=== PATIENT | female | born 1955 | race African-American/Black ===

== ENCOUNTER 2022-01-26 12:32 | Emergency (ER) | payer MEDICARE, MEDICAID ==
[~2022-01-26] VITALS: Ht 165.1 cm; Wt 54.0 kg
[2022-01-26 12:39] VITALS: BP 141/86
[2022-01-26 14:27] LABS: CLARITY URINE CLOUDY (CLEAR); COLOR URINE YELLOW (YELLOW); KETONES URINE NEGATIVE (NEGATIVE); LEUKOCYTE ESTERASE URINE 3+ (NEGATIVE); NITRITE URINE NEGATIVE (NEGATIVE); OCCULT BLOOD URINE TRACE (NEGATIVE); PROTEIN URINE NEGATIVE (NEGATIVE); SPECIFIC GRAVITY URINE 1.014 (1.005-1.030)
[2022-01-26] MEDS ORDERED: CEFP100S5 MT (15:19)
[2022-01-26] MEDS ORDERED: METR-167 MT (15:19)
[2022-01-26] MEDS ORDERED: OXYM30SP26 BOTHNSTRLS (16:52)
== END 2022-01-26 15:39 | disposition home or self-care (01) ==
LOC: ER 12:32
DX: S02.2XXA Fracture of nasal bones, initial encounter for closed fracture (principal); S09.8XXA Other specified injuries of head, initial encounter; Y04.2XXA Assault by strike against or bumped into by another person, initial encounter; A59.09 Other urogenital trichomoniasis; J32.9 Chronic sinusitis, unspecified; Y93.89 Activity, other specified; Y92.89 Other specified places as the place of occurrence of the external cause; F17.210 Nicotine dependence, cigarettes, uncomplicated; Z71.6 Tobacco abuse counseling
CPT/HCPCS: 70486; 81003; 99284; 99406

== ENCOUNTER 2022-01-28 11:41 | Emergency (ER) | payer MEDICARE, MEDICAID ==
[~2022-01-28] VITALS: Ht 165.1 cm; Wt 50.0 kg
[~2022-01-28 11:41] MED LIST: CEFP100S5 MT; METR-167 MT; OXYM30SP26 BOTHNSTRLS
[2022-01-28 11:49] VITALS: BP 125/75
[2022-01-28] MEDS ORDERED: IBUP-2030 MT (12:04)
[2022-01-28] MEDS ORDERED: KETOROLAC 30MG/ML VIAL IM ONE (12:15)
[2022-01-28] MEDS ORDERED: DOXYCYCLINE HYCLATE 100MG CAPSULE PO ONE ×2 (12:30→13:00)
[2022-01-28] MEDS ORDERED: CEFTRIAXONE SODIUM 500 MG/VIAL IM ONE ×2 (12:30→13:00)
[2022-01-28] MEDS ORDERED: METR-167 MT (12:32)
[2022-01-28] MEDS ORDERED: DOXY-326 MT (12:32)
== END 2022-01-28 14:47 | disposition home or self-care (01) ==
LOC: ER 13:28
DX: A59.00 Urogenital trichomoniasis, unspecified (principal); D25.9 Leiomyoma of uterus, unspecified; Z20.2 Contact with and (suspected) exposure to infections with a predominantly sexual mode of transmission; Z88.8 Allergy status to other drugs, medicaments and biological substances
CPT/HCPCS: 76830; 76856; 96372; 99284; J0696; J1885

== ENCOUNTER 2022-10-01 15:19 | Emergency (ER) | payer MEDICARE, MEDICAID ==
[~2022-10-01] VITALS: Ht 157.5 cm; Wt 70.0 kg
[~2022-10-01 15:19] MED LIST changes: -CEFP100S5 MT; +DOXY-326 MT; +IBUP-2030 MT
[2022-10-01 15:31] VITALS: BP 190/108
[2022-10-01 17:23] LABS: BASOPHILS % 0.3 % (0.0-2.0); EOSINOPHILS % 0.5 % (0.0-5.0); HEMATOCRIT. 43.1 % (36.0-48.0); HEMOGLOBIN. 14.6 g/dL (12.0-16.0); LYMPHOCYTES % 30.1 % (20.0-50.0); MEAN CORPUSCULAR HEMOGLOBIN 29.5 pg (28.0-32.0); MEAN CORPUSCULAR VOLUME 87.1 fL (81.0-99.0); MEAN PLATELET VOLUME 7.6 fl (7.4-10.4); MONOCYTES % 5.8 % (2.0-8.0); NEUTROPHILS % 63.3 % (40.0-76.0); PLATELET 261 x1000/uL (130-400); RED BLOOD CELL COUNT 4.95 mill/uL (4.2-5.4)
[2022-10-01 17:30] LABS: CHLORIDE 107 mEq/L (98-107)
[2022-10-02] MEDS ORDERED: MECL-159 MT (00:54)
[2022-10-02] MEDS ORDERED: AMOX-494 MT (00:54)
[2022-10-02] MEDS ORDERED: AMLO5TAB88 MT (00:54)
== END 2022-10-02 01:19 | disposition home or self-care (01) ==
LOC: ER 15:19
DX: R42 Dizziness and giddiness (principal); H92.01 Otalgia, right ear; I10 Essential (primary) hypertension
CPT/HCPCS: 36415; 71045; 80053; 84484; 85025; 93005; 99285

== ENCOUNTER 2023-01-17 09:46 | Emergency (ER) | payer MEDICARE, MEDICAID ==
[~2023-01-17] VITALS: Ht 162.6 cm; Wt 65.5 kg
[~2023-01-17 09:46] MED LIST changes: +AMLO5TAB88 MT; +AMOX-494 MT; -DOXY-326 MT; +DOXY-456 MT; +MECL-159 MT
[2023-01-17 10:03] VITALS: BP 150/97
[2023-01-17] MEDS ORDERED: AMLO5TAB88 MT (10:40)
[2023-01-17] MEDS ORDERED: MECL-159 MT (10:40)
[2023-01-17] MEDS ORDERED: MELO-104 MT (10:40)
== END 2023-01-17 11:33 | disposition home or self-care (01) ==
LOC: ER 09:46
DX: M25.561 Pain in right knee (principal); I10 Essential (primary) hypertension; Z76.0 Encounter for issue of repeat prescription; Z88.8 Allergy status to other drugs, medicaments and biological substances; Z88.9 Allergy status to unspecified drugs, medicaments and biological substances; Z98.890 Other specified postprocedural states
CPT/HCPCS: 99281

== ENCOUNTER 2023-07-10 07:43 | Emergency (ER) | payer MEDICARE, MEDICAID ==
[~2023-07-10] VITALS: Ht 167.6 cm; Wt 79.0 kg
[~2023-07-10 07:43] MED LIST changes: -MECL-159 MT; +MECL-299 MT; +MELO-104 MT
[2023-07-10 07:47] VITALS: BP 153/93; PULSE 71; RESP 20; TEMP 98.1; O2SAT 98
[2023-07-10] MEDS ORDERED: AMLO5TAB4 MT (08:50)
== END 2023-07-10 09:13 | disposition home or self-care (01) ==
LOC: ER 07:56
DX: Z76.0 Encounter for issue of repeat prescription (principal); I16.0 Hypertensive urgency; J44.1 Chronic obstructive pulmonary disease with (acute) exacerbation; Z88.8 Allergy status to other drugs, medicaments and biological substances; Z88.9 Allergy status to unspecified drugs, medicaments and biological substances
CPT/HCPCS: 99281

== ENCOUNTER 2024-08-09 12:29 | Emergency (ER) | payer MEDICARE, MEDICAID ==
[~2024-08-09] VITALS: Ht 165.1 cm; Wt 190.0 kg
[~2024-08-09 12:29] MED LIST changes: +AMLO5TAB4 MT; -DOXY-456 MT; +DOXY100C74 MT
[2024-08-09 12:39] VITALS: O2SAT 97
[2024-08-09] MEDS ORDERED: GUAI-450 MT (14:21)
[2024-08-09] MEDS ORDERED: ALBU18HF2 IH (14:22)
[2024-08-09] MEDS ORDERED: P50 MT (14:22)
[2024-08-09 14:55] VITALS: BP 151/88; PULSE 85; RESP 18; TEMP 36.78072; O2SAT 97
== END 2024-08-09 15:01 | disposition home or self-care (01) ==
LOC: ER 12:29
DX: J06.9 Acute upper respiratory infection, unspecified (principal); Z79.899 Other long term (current) drug therapy; Z98.890 Other specified postprocedural states
CPT/HCPCS: 71045; 99283

== ENCOUNTER 2025-03-09 08:50 | Emergency (ER) | payer MEDICARE, MEDICAID ==
[~2025-03-09] VITALS: Ht 165.1 cm; Wt 89.0 kg
[~2025-03-09 08:50] MED LIST changes: +ALBU18HF2 IH; -AMLO5TAB4 MT; +AMLO5TAB5 MT; +DOXY-461 MT; -DOXY100C74 MT; +GUAI-450 MT; +P50 MT
[2025-03-09 08:58] VITALS: O2SAT 95
[2025-03-09 09:37] LABS: HEMOGLOBIN 13.6 g/dL (12.0-16.0); MEAN CORPUSCULAR HEMOGLOBIN 28.5 pg (28.0-32.0); MEAN CORPUSCULAR HGB CONC 34.1 g/dL (31.0-37.0); MEAN CORPUSCULAR VOLUME 83.7 fL (81.0-99.0); PLATELET 230 x1000/uL (130-400); RED BLOOD CELL COUNT 4.78 mill/uL (4.2-5.4); RED CELL DISTRIBUTION WIDTH 14.9 % (11.6-14.6)
[2025-03-09 09:47] LABS: CHLORIDE 108 mEq/L (98-107); POTASSIUM 3.7 mEq/L (3.5-5.1); SODIUM 143 mEq/L (136-145)
[2025-03-09 09:48] LABS: CALCIUM 8.9 mg/dL (8.7-10.4); CARBON DIOXIDE 28 mEq/L (21-32)
[2025-03-09 09:53] LABS: CREATININE 0.7 mg/dL (0.6-1.0); GLUCOSE 95 mg/dL (70-105); UREA NITROGEN BLOOD 10 mg/dL (9-23)
[2025-03-09 10:10] LABS: TROPONIN I HIGH SENSITIVITY < 4 ng/L (3.0-34)
[2025-03-09 10:29] LABS: CLARITY URINE CLEAR (CLEAR); COLOR URINE YELLOW (YELLOW); GLUCOSE URINE NEGATIVE (NEGATIVE); KETONES URINE NEGATIVE (NEGATIVE); LEUKOCYTE ESTERASE URINE NEGATIVE (NEGATIVE); NITRITE URINE NEGATIVE (NEGATIVE); OCCULT BLOOD URINE NEGATIVE (NEGATIVE); PH URINE 6.5 (4.5-8.0); PROTEIN URINE NEGATIVE (NEGATIVE); SPECIFIC GRAVITY URINE 1.012 (1.005-1.030); UROBILINOGEN URINE 0.2 E.U./dL (0.2-1.0)
[2025-03-09] MEDS ORDERED: AMLO5TAB88 MT (10:49)
[2025-03-09 11:14] VITALS: BP 170/103; PULSE 63; RESP 18; TEMP 36.8; O2SAT 98
== END 2025-03-09 11:15 | disposition home or self-care (01) ==
LOC: ER 08:50
DX: R00.2 Palpitations (principal); I10 Essential (primary) hypertension; Z79.1 Long term (current) use of non-steroidal anti-inflammatories (NSAID); Z79.899 Other long term (current) drug therapy; Z98.890 Other specified postprocedural states
CPT/HCPCS: 36415; 71045; 80048; 81003; 84484; 85027; 93005; 99285

== ENCOUNTER 2025-07-25 09:50 | Emergency (ER) | payer MEDICARE, MEDICAID ==
[~2025-07-25] VITALS: Ht 170.2 cm; Wt 83.0 kg
[~2025-07-25 09:50] MED LIST changes: -AMLO5TAB5 MT; +AMLO5TAB6 MT
[2025-07-25 09:53] VITALS: PULSE 77; RESP 16; O2SAT 99
[2025-07-25 09:58] VITALS: BP 167/104; TEMP 36.6; O2SAT 100
[2025-07-25 11:16] LABS: CLARITY URINE CLOUDY (CLEAR); COLOR URINE YELLOW (YELLOW); GLUCOSE URINE NEGATIVE (NEGATIVE); KETONES URINE NEGATIVE (NEGATIVE); LEUKOCYTE ESTERASE URINE NEGATIVE (NEGATIVE); NITRITE URINE NEGATIVE (NEGATIVE); OCCULT BLOOD URINE NEGATIVE (NEGATIVE); PH URINE 7.0 (4.5-8.0); PROTEIN URINE NEGATIVE (NEGATIVE); SPECIFIC GRAVITY URINE 1.013 (1.005-1.030); UROBILINOGEN URINE 1.0 E.U./dL (0.2-1.0)
[2025-07-25 11:43] LABS: BACTERIA URINE 1+; RBC URINE 0-2 /hpf (0-2); SQUAMOUS EPITHELIAL CELL URINE 3+ /lpf (RARE/1+); WBC URINE 0-2 /hpf (0-2); YEAST URINE NONE SEEN
[2025-07-25 11:50] LABS: BASOPHILS % 0.6 % (0.0-2.0); EOSINOPHILS % 0.5 % (0.0-5.0); HEMATOCRIT. 40.3 % (36.0-48.0); HEMOGLOBIN. 13.2 g/dL (12.0-16.0); LYMPHOCYTES % 30.2 % (20.0-50.0); MEAN PLATELET VOLUME 7.6 fl (7.4-10.4); MONOCYTES % 7.0 % (2.0-8.0); NEUTROPHILS % 61.7 % (40.0-76.0); PLATELET 262 x1000/uL (130-400); RED BLOOD CELL COUNT 4.75 mill/uL (4.2-5.4); RED CELL DISTRIBUTION WIDTH 14.5 % (11.6-14.6)
[2025-07-25 12:03] LABS: CREATININE 0.6 mg/dL (0.6-1.0); UREA NITROGEN BLOOD 6 mg/dL (9-23)
[2025-07-25] MEDS ORDERED: IBUP-1455 MT (12:25)
== END 2025-07-25 12:51 | disposition home or self-care (01) ==
LOC: ER 09:50
DX: M54.50 Low back pain, unspecified (principal); I10 Essential (primary) hypertension; Z79.899 Other long term (current) drug therapy
CPT/HCPCS: 36415; 80048; 81003; 81025; 85025; 93005; 99284

== ENCOUNTER 2025-08-24 10:13 | Emergency (ER) | payer MEDICARE, MEDICAID ==
[~2025-08-24] VITALS: Ht 170.2 cm; Wt 83.0 kg
[~2025-08-24 10:13] MED LIST changes: +IBUP-1455 MT
[2025-08-24 10:19] VITALS: TEMP 36.9; O2SAT 99
[2025-08-24] MEDS ORDERED: IBUPROFEN 600MG TABLET PO ONE (12:30)
[2025-08-24] MEDS ORDERED: IBUP-2028 MT (12:40)
[2025-08-24] MEDS ORDERED: LIDO-53 TP (12:40)
[2025-08-24] MEDS: IBUPROFEN 600MG TABLET PO SCH (13:20)
[2025-08-24] MEDS: LIDOCAINE 5% PATCH TOP SCH (13:21)
[2025-08-24 13:41] VITALS: BP 149/87; PULSE 92; RESP 18; O2SAT 100
== END 2025-08-24 14:27 | disposition home or self-care (01) ==
LOC: ER 10:13
DX: M25.572 Pain in left ankle and joints of left foot (principal); I10 Essential (primary) hypertension; Z79.1 Long term (current) use of non-steroidal anti-inflammatories (NSAID); Z79.899 Other long term (current) drug therapy
CPT/HCPCS: 99283; A6449